=== PATIENT | male | born 1980 | race Caucasian/White ===

== ENCOUNTER 2016-10-21 20:04 | Emergency (ER) | payer BC, OTHER ==
[~2016-10-21] VITALS: Ht 182.9 cm; Wt 102.5 kg
[2016-10-21 20:41] LABS: BLOOD UREA NITROGEN 16 mg/dL (7-18)
[2016-10-21] MEDS ORDERED: HYDROmorphone 1 MG/ML, 1ML ONE ×2 (21:16→22:57)
[2016-10-21] MEDS ORDERED: ONDANSETRON ODT 4 MG ONE (21:27)
[2016-10-21] MEDS ORDERED: ONDANSETRON ODT 4 MG PO ONE (21:30)
[2016-10-21] MEDS ORDERED: HYDROmorphone 1 MG/ML, 1ML IM ONE (21:30)
[2016-10-21] MEDS ORDERED: SODIUM CHLORIDE 0.9% 1,000ML IVBOLUS ONE (22:00)
[2016-10-21] MEDS ORDERED: SODIUM CHLORIDE FLUSH 10ML SYR IVF ONE (22:00)
[2016-10-21] MEDS ORDERED: METOCLOPRAMIDE 5 MG/ML, 2ML ONE (22:57)
[2016-10-21] MEDS ORDERED: METOCLOPRAMIDE 5 MG/ML, 2ML IVPush ONE (23:00)
[2016-10-21] MEDS ORDERED: HYDROmorphone 1 MG/ML, 1ML IV ONE (23:00)
[2016-10-21 23:15] VITALS: BP 140/89
[2016-10-21] MEDS ORDERED: KETOROLAC 30 MG/1 ML ONE (23:21)
[2016-10-21] MEDS ORDERED: TAMSULOSIN 0.4 MG CAP.ER.24H ONE (23:21)
[2016-10-21] MEDS ORDERED: KETOROLAC 30 MG/1 ML IVPush ONE (23:30)
[2016-10-21] MEDS ORDERED: TAMSULOSIN 0.4 MG CAP.ER.24H PO ONE (23:30)
[2016-10-21] MEDS ORDERED: OMNIPAQUE 350 MG/ML, 100ML BOTTLE ONE (23:51)
== END 2016-10-21 23:52 | disposition home or self-care (01) ==
LOC: ED 22:30
DX: N20.1 Calculus of ureter (principal); R10.32 Left lower quadrant pain; N13.2 Hydronephrosis with renal and ureteral calculous obstruction
CPT/HCPCS: 36415; 74020; 74177; 80048; 81003; 82040; 85025; 96361; 96372; 96374; 96375; 99285; J1170; J1885; J2765; J7030; Q0162; Q9967